=== PATIENT | male | born 1990 | race Caucasian/White ===

== ENCOUNTER 2017-06-12 06:41 | Emergency (ER) | payer BC ==
[~2017-06-12] VITALS: Ht 182.9 cm; Wt 106.5 kg
[2017-06-12 06:43] VITALS: BP 152/94; PULSE 105; RESP 16; TEMP 98.5; O2SAT 96
--- NOTE | 2017-06-12 07:28 | PD ---
HPI Chief Complaint: Cardiac Complaint Time Seen by Provider: 07:16 Travel History International Travel<30 days: No Contact w/Intl Traveler<30days: No Traveled to known affect area: No History of Present Illness HPI 26-year-old man who presents to the emergency department complaining of palpitations. He is a history of the repeat obvious status post ablation in 2013. He states he's felt well since then until this morning he developed some feeling of palpitations and heart racing with some funny feeling to when in the right side of his neck. The symptoms are resolved now. He otherwise has been feeling completely well and healthy. No recent illness or injury. A little bit of sore throat a couple weeks ago. No nausea no vomiting. No chest pain. No trouble breathing. He had a recent 2 week old monitor performed and is following up with his sas programmer remote based on the findings shortly. History Past Medical History Narrative Medical WPW status post ablation Social History Alcohol Use: No Tobacco Use: No Allergies-Medications (Allergen,Severity, Reaction): Coded Allergies: No Known Allergies (Unverified , 06/12/17) Reported Meds & Prescriptions Reported Meds & Active Scripts Active No Active Prescriptions or Reported Medications Review of Systems Except as stated in HPI: all other systems reviewed are Neg Physical Exam Narrative GENERAL: 26-year-old man, no acute distress. SKIN: Focused skin assessment warm/dry. NECK: Trachea midline. No JVD. CARDIOVASCULAR: Regular rate and rhythm. No murmur appreciated. RESPIRATORY: No accessory muscle use. Clear to auscultation. Breath sounds equal bilaterally. GASTROINTESTINAL: Abdomen soft, non-tender, nondistended. Hepatic and splenic margins not palpable. MUSCULOSKELETAL: No obvious deformities. No edema. NEUROLOGICAL: Awake and alert. No obvious cranial nerve deficits. Motor grossly within normal limits. Normal speech. PSYCHIATRIC: Appropriate mood and affect; insight and judgment normal. Data Data Last Documented VS Vital Signs Date Time Temp Pulse Resp B/P (MAP) Pulse Ox O2 Delivery O2 Flow Rate FiO2 06/12/17 06:43 98.5 105 16 152/94 (113) 96 Room Air MDM Medical Decision Making Medical Screen Exam Complete: Yes Emergency Medical Condition: Yes Interpretation(s) My review of EKG: Normal sinus rhythm at a rate of 87, normal axis, normal IA interval 167, no appreciable delta waves, no evidence of acute ischemia. Differential Diagnosis Palpitations, arrhythmia, SVT, V. tach, other Narrative Course Medical decision-making 26-year-old man with history of WPW status post ablation who presents emergent department complaining of palpitations. Normal EKG, normal heart rhythm, no history suggestive of electrolyte abnormalities or other precipitant. He has follow-up scheduled with cardiology. I don't think he needs any further workup at this point, will recommend close outpatient follow-up with cardiology as planned. Diagnosis Primary Impression: Heart palpitations Additional Instructions: Follow-up with her s[employer] programmer remote as planned. Return to the emergency department for any new or worsening symptoms. Med/Other Pt SpecificInfo: No Change to Meds Scripts No Active Prescriptions or Reported Meds Disposition: 01 DISCHARGE HOME Condition: Stable Korey Sanchez MD Jun 12, 2017 07:28
--- NOTE | 2017-06-12 12:26 | EKG ---
Date Performed: 06/12/2017 Time Performed: 06:59:46 PTAGE: 26 years EKG: Sinus rhythm NORMAL ECG NO PREVIOUS TRACING DOCTOR: David Ayala Interpretating Date/Time 06/12/2017 12:24:55
== END 2017-06-12 08:14 | disposition home or self-care (01) ==
LOC: NEPE 06:41
DX: R00.2 Palpitations (principal)
CPT/HCPCS: 93005; 99283